=== PATIENT | female | born 1950 | race Caucasian/White ===

== ENCOUNTER 2020-05-24 12:22 | Observation (INO) | payer MEDICARE, OTHER ==
[~2020-05-24] VITALS: Ht 177.8 cm; Wt 81.6 kg
[~2020-05-24 12:22] MED LIST: ALBUTEROL; ALBUTEROL0.63 MG/3 NEB; FLONASE16 GM; LOVASTATIN10 MG PO; LOVASTATIN40 MG PO; MELOXICAM15 MG PO; MELOXICAM7.5 MG PO; MONTELUKAST SOD10 MG PO; PRENATAL TABLE1 EAC1 PO; PRISTIQ ER50 MG PO; SINGULAIR5 MG PO; SYMBICORT 16010.2 GM; ULTRAM50 MG PO; VITAMIN D2000 UNIT PO; XANAX0.25 MG PO
[2020-05-24 12:45] LABS: BASOPHILS # (AUTO) 0.1 (0.0-0.1); BASOPHILS % 0.9 % (0.0-1.0); EOSINOPHILS # (AUTO) 0.2 (0.0-0.4); EOSINOPHILS % 2.7 % (0.0-6.0); HEMOGLOBIN 14.8 g/dL (12.0-16.0); LYMPHOCYTES # (AUTO) 1.4 (1.0-3.2); LYMPHOCYTES % 21.6 % (18.0-39.1); MEAN CORPUSCULAR HEMOGLOBIN 28.9 pg (28-32); MEAN CORPUSCULAR HGB CONC 32.9 g/dL (31-35); MEAN CORPUSCULAR VOLUME 87.9 fL (81-99); MONOCYTES # (AUTO) 0.5 (0.2-0.8); NEUTROPHILS # (AUTO) 4.3 (2.1-6.9); NEUTROPHILS % 67.5 % (38.7-80.0); PLATELET COUNT 291 x10e3/uL (140-360); RED BLOOD COUNT 5.12 x10e6/uL (3.6-5.1); RED CELL DISTRIBUTION WIDTH 12.5 % (11.7-14.4)
[2020-05-24] MEDS: SODIUM CHLORIDE 0.9% 1000ML 1,000 ML IV STA ×2 (12:45→13:04)
[2020-05-24 12:52] LABS: INR 0.94; PROTHROMBIN TIME 13.1 seconds (11.9-14.5)
[2020-05-24 12:53] LABS: PARTIAL THROMBOPLASTIN TIME 32.7 seconds (23.8-35.5)
[2020-05-24 13:04] LABS: ALANINE AMINOTRANSFERASE 9 IU/L (0-55); ALBUMIN 4.2 g/dL (3.5-5.0); ALBUMIN/GLOBULIN RATIO 1.3 (0.8-2.0); ALKALINE PHOSPHATASE 88 IU/L (40-150); ANION GAP 12.6 mmol/L (8-16); BLOOD UREA NITROGEN 6 mg/dL (7-26); BUN/CREATININE RATIO 8 (6-25); CALCIUM 8.9 mg/dL (8.4-10.2); CARBON DIOXIDE 26 mmol/L (22-29); CHLORIDE 105 mmol/L (98-107); CREATINE KINASE 51 IU/L (29-168); CREATININE, SERUM 0.77 mg/dL (0.57-1.11); EST GLOMERULAR FILTRATION RATE > 60 ML/MIN (60-); GLUCOSE 98 mg/dL (74-118); POTASSIUM 3.6 mmol/L (3.5-5.1); SODIUM 140 mmol/L (136-145)
[2020-05-24 14:18] LABS: CLARITY,URINE CLEAR (CLEAR); COLOR,URINE YELLOW (YELLOW); KETONES,URINE 1+ (NEGATIVE); LEUKOCYTE ESTERASE ,URINE NEGATIVE (NEGATIVE); NITRITE,URINE NEGATIVE (NEGATIVE); PROTEIN,URINE DIPSTICK NEGATIVE (NEGATIVE)
[2020-05-24 14:19] LABS: URINE UROBILINOGEN 0.2 mg/dL (0.2 - 1)
[2020-05-24] MEDS ORDERED: SYMBICORT 16010.2 GM INH (15:45)
[2020-05-24] MEDS ORDERED: LOSARTAN POTASS25 MG PO (15:45)
[2020-05-24] MEDS ORDERED: CETIRIZINE HCL10 MG PO (15:45)
[2020-05-24] MEDS ORDERED: albuterol inhaler INH (15:45)
[2020-05-24] MEDS ORDERED: ONDANSETRON HCL INJ 2MG/ML 2ML 2 MG/ML VIAL IV PRN (16:15)
[2020-05-24] MEDS: FAMOTIDINE 20 MG/2 ML VIAL IV SCH ×2 (16:43→21:42)
[2020-05-24] MEDS: METOPROLOL TARTRATE 25 MG TAB PO SCH (16:44)
[2020-05-24] MEDS ORDERED: FLUTICASONE PROPIONATE NASAL SPRAY NS SCH (17:00)
[2020-05-24 18:40] LABS: CREATINE KINASE MB 0.7 ng/mL (0-5.0)
[2020-05-24 19:12] LABS: CREATINE KINASE MB 0.7 ng/mL (0-5.0)
[2020-05-24 21:07] VITALS: BP 128/87
[2020-05-24 21:53] VITALS: BP 128/87
[2020-05-24 21:59] VITALS: BP 128/87
[2020-05-24] MEDS ORDERED: PROVENTIL HFA6.7 GM INH (22:03)
[2020-05-24] MEDS ORDERED: IBUPROFEN400 MG PO (22:04)
[2020-05-25 00:32] LABS: CREATINE KINASE MB 0.7 ng/mL (0-5.0)
[2020-05-25 01:49] VITALS: BP 146/91
[2020-05-25 04:48] VITALS: BP 123/86
[2020-05-25 06:29] LABS: BASOPHILS % 0.6 % (0.0-1.0); EOSINOPHILS # (AUTO) 0.2 (0.0-0.4); EOSINOPHILS % 4.2 % (0.0-6.0); HEMATOCRIT 40.4 % (34.2-44.1); HEMOGLOBIN 13.7 g/dL (12.0-16.0); LYMPHOCYTES # (AUTO) 1.5 (1.0-3.2); LYMPHOCYTES % 31.6 % (18.0-39.1); MEAN CORPUSCULAR HEMOGLOBIN 30.3 pg (28-32); MEAN CORPUSCULAR HGB CONC 33.9 g/dL (31-35); MEAN CORPUSCULAR VOLUME 89.4 fL (81-99); MONOCYTES # (AUTO) 0.4 (0.2-0.8); MONOCYTES % 7.9 % (4.4-11.3); NEUTROPHILS # (AUTO) 2.6 (2.1-6.9); NEUTROPHILS % 55.5 % (38.7-80.0); PLATELET COUNT 227 x10e3/uL (140-360); RED BLOOD COUNT 4.52 x10e6/uL (3.6-5.1); RED CELL DISTRIBUTION WIDTH 12.4 % (11.7-14.4)
[2020-05-25] MEDS: METOPROLOL TARTRATE 25 MG TAB PO SCH (06:46)
[2020-05-25 07:28] VITALS: BP 123/86
[2020-05-25 07:46] LABS: ALANINE AMINOTRANSFERASE 7 IU/L (0-55); ALBUMIN 3.6 g/dL (3.5-5.0); ALBUMIN/GLOBULIN RATIO 1.4 (0.8-2.0); ALKALINE PHOSPHATASE 71 IU/L (40-150); ANION GAP 11.5 mmol/L (8-16); BLOOD UREA NITROGEN 6 mg/dL (7-26); BUN/CREATININE RATIO 8 (6-25); CALCIUM 8.6 mg/dL (8.4-10.2); CARBON DIOXIDE 25 mmol/L (22-29); CHLORIDE 109 mmol/L (98-107); CHOL/HDL RATIO 4.9 (3.0-3.6); CHOLESTEROL 232 MD/DL (0-199); CREATININE, SERUM 0.73 mg/dL (0.57-1.11); EST GLOMERULAR FILTRATION RATE > 60 ML/MIN (60-); GLUCOSE 106 mg/dL (74-118); HDL CHOLESTEROL 47 MG/DL (40-60); LDL CHOLESTEROL 160 MG/DL (60-130); POTASSIUM 3.5 mmol/L (3.5-5.1); SODIUM 142 mmol/L (136-145); TRIGLYCERIDES 127 MG/DL (0-149)
[2020-05-25 07:47] VITALS: BP 163/94
[2020-05-25] MEDS ORDERED: ALBUTEROL SULFATE HFA 8GM INHALATION AEROSOL INH PRN (08:15)
[2020-05-25 08:22] LABS: CREATINE KINASE MB 0.7 ng/mL (0-5.0)
[2020-05-25] MEDS ORDERED: TESSALON PERLE100 MG PO (09:00)
[2020-05-25] MEDS ORDERED: DIOVAN160 MG PO (09:00)
[2020-05-25] MEDS ORDERED: VALSARTAN 160 MG TAB PO SCH (09:00)
[2020-05-25] MEDS ORDERED: SYMBICORT 16010.2 GM INH (09:01)
[2020-05-25] MEDS ORDERED: PREDNISONE5 MG PO (09:01)
[2020-05-25] MEDS: FAMOTIDINE 20 MG/2 ML VIAL IV SCH (09:13)
[2020-05-25] MEDS ORDERED: LORATADINE 10 MG TAB PO SCH (09:30)
[2020-05-25] MEDS ORDERED: ONDANSETRON HCL 4 MG ORAL DISINTEGRATING TAB PO PRN (09:45)
[2020-05-25] MEDS ORDERED: BUDESONIDE/FORMOTEROL 160/4.5MCG INHALER INH SCH (09:45)
[2020-05-25] MEDS ORDERED: DESVENLAFAXINE SUCCINATE 50 MG TAB.SR.24H PO SCH (10:00)
[2020-05-25] MEDS ORDERED: FLUTICASONE PROPIONATE NASAL SPRAY NS SCH (10:00)
[2020-05-25] MEDS ORDERED: MONTELUKAST SODIUM 10 MG TAB PO SCH (21:00)
== END 2020-05-25 10:26 | disposition home or self-care (01) ==
LOC: ER 12:30 → ERHOLD 16:21 → MED/SURG 19:47
PROVIDERS: ADMIT Internal Medicine; ATTEND Internal Medicine
DX: J30.9 Allergic rhinitis, unspecified (principal); F41.0 Panic disorder [episodic paroxysmal anxiety]; J44.9 Chronic obstructive pulmonary disease, unspecified; I10 Essential (primary) hypertension; Z20.822 Contact with and (suspected) exposure to COVID-19; F41.9 Anxiety disorder, unspecified; I16.0 Hypertensive urgency
CPT/HCPCS: 36415 ×2; 70450; 71045; 80053 ×2; 80061; 81001; 82550 ×2; 82553 ×2; 83735; 83880; 84484 ×2; 85025 ×2; 85610; 85730; 87086; 93005; 99284; G0378 ×2; J7030; U0002

== ENCOUNTER 2021-08-22 08:29 | Emergency (ER) | payer MEDICARE ==
[~2021-08-22] VITALS: Ht 177.8 cm; Wt 79.8 kg
[~2021-08-22 08:29] MED LIST changes: +CETIRIZINE HCL10 MG PO; +DIOVAN160 MG PO; +IBUPROFEN400 MG PO; +LOSARTAN POTASS25 MG PO; +PREDNISONE5 MG PO; +PROVENTIL HFA6.7 GM INH; +SYMBICORT 16010.2 GM INH; +TESSALON PERLE100 MG PO; +albuterol inhaler INH
== END 2021-08-22 11:51 | disposition home or self-care (01) ==
LOC: ER 09:00
DX: S62.638A Displaced fracture of distal phalanx of other finger, initial encounter for closed fracture (principal); L03.114 Cellulitis of left upper limb; X50.0XXA Overexertion from strenuous movement or load, initial encounter; Y93.89 Activity, other specified; M19.042 Primary osteoarthritis, left hand; I10 Essential (primary) hypertension; J45.909 Unspecified asthma, uncomplicated; F41.9 Anxiety disorder, unspecified; F90.9 Attention-deficit hyperactivity disorder, unspecified type; R53.82 Chronic fatigue, unspecified
CPT/HCPCS: 99284

== ENCOUNTER 2024-01-01 04:30 | Emergency (ER) | payer MEDICARE ==
[~2024-01-01] VITALS: Ht 177.8 cm; Wt 77.6 kg
[2024-01-01 04:35] VITALS: PULSE 76; RESP 18; TEMP 98.4; O2SAT 100
[2024-01-01] MEDS ORDERED: AZITHROMYCIN250 MG PO (04:41)
[2024-01-01] MEDS ORDERED: MEDROL4 M2 PO (04:44)
== END 2024-01-01 04:50 | disposition home or self-care (01) ==
LOC: ER 04:35
DX: R51.9 Headache, unspecified (principal); J01.10 Acute frontal sinusitis, unspecified; I10 Essential (primary) hypertension; J45.909 Unspecified asthma, uncomplicated; F41.9 Anxiety disorder, unspecified; F90.9 Attention-deficit hyperactivity disorder, unspecified type; G93.32 Myalgic encephalomyelitis/chronic fatigue syndrome
CPT/HCPCS: 99283